=== PATIENT | female | born 1990 | race Caucasian/White ===

== ENCOUNTER 2016-10-31 10:17 | Emergency (ER) | payer SELFPAY ==
[2016-10-31 11:21] VITALS: BP 132/96
--- NOTE | 2016-10-31 12:09 | UC ---
Suraj Acosta SooYoung, scribed for [facility] on 10/31/16 at 1148 . General HPI - HPI Summary HPI Summary: MD AND NURSE'S NOTE: A 26 y/o F with diarrhea and vomiting since last night according to nurse's report. Vitals are stable. Afebrile. Pulse ox 99. Describes 8 out of 10 abd discomfort. PMHx include PNA, GERD, anxiety and depression. IN ROOM NOTE: A 26 y/o F presents to E with c/o n/v/d onset last night approx 2200. Pt has had 10 episodes diarrhea since last night. 2 episodes of emesis this AM, mostly liquid and acidic. Associated sx: diffuse abd pain, increased gas. Denies melena. 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 States no pancreatic issues. She drinks rarely , last drank on . - History of Current Complaint Chief Complaint: UCGI Stated Complaint: DIARRHEA ABD PAIN Time Seen by Provider: 10/31/16 11:22 Hx Obtained From: Patient Onset/Duration: Lasting Hours - onset 2200 last night, Still Present Current Severity: Moderate Pain Intensity: 8 - OUT OF 10 Character: ACHE Associated Signs & Symptoms: Positive: Abdominal Pain, Diarrhea, Nausea, Vomiting, Other - increased gas. Negative: Melena - Allergy/Home Medications Allergies/Adverse Reactions: Allergies Allergy/AdvReac Type Severity Reaction Status Date / Time No Known Allergies Allergy Verified 09/30/16 18:48 PMH/Surg Hx/FS Hx/Imm Hx Previously Healthy: No Endocrine History Of: Denies: Diabetes, Thyroid Disease Cardiovascular History Of: Denies: Cardiac Disorders, Hypertension Respiratory History Of: Reports: Pneumonia Denies: COPD, Asthma GI/ History Of: Denies: Ulcer Psychological History Of: Reports: Anxiety, Depression Cancer History Of: Denies: Breast Cancer - Surgical History Surgical History: None - Family History Known Family History: Positive: Diabetes - multiple relatives Family History: Ovarian and Cervical CA, Asthma - Social History Occupation: Employed Part-time Lives: Alone Alcohol Use: Rare Substance Use Type: None Smoking Status (MU): Never Smoked Tobacco - Immunization History Most Recent Influenza Vaccination: 08/2016 Most Recent Tetanus Shot: < 10 years Most Recent Pneumonia Vaccination: Unsure Review of Systems Gastrointestinal: Abdominal Pain - diffuse, Vomiting, Diarrhea, Other - pos: nausea, increased gas All Other Systems Reviewed And Are Negative: Yes Physical Exam Triage Information Reviewed: Yes Appearance: Well-Appearing, No Pain Distress, Well-Nourished Vital Signs: Initial Vital Signs Temp 97.9 F 10/31/16 11:15 Pulse 92 10/31/16 11:15 Resp 18 10/31/16 11:15 BP 132/96 10/31/16 11:15 Pulse Ox 99 10/31/16 11:15 Vital Signs Reviewed: Yes Eyes: Positive: Conjunctiva Clear ENT: Positive: Hearing grossly normal, Pharynx normal, TMs normal. Negative: Muffled/hoarse voice Neck: Positive: Supple, No Lymphadenopathy Respiratory: Positive: Chest non-tender, Lungs clear, Normal breath sounds, No respiratory distress Cardiovascular: Positive: RRR - approx 90bpm, No Murmur Abdomen Description: Positive: Nontender, No Organomegaly, Soft, Other: - MILD TENDERNESS IN UPPER ABD AND AROUND UMBILICUS WITH PALPATION. NO ACUTE ABD Bowel Sounds: Positive: Present Musculoskeletal: Positive: Strength Intact, Other: - CARROLL Neurological: Positive: Alert Psychological: Positive: Age Appropriate Behavior Skin: Negative: rashes Course/Dx - Course Course Of Treatment: Discussed with pt the need to simplify diet. Will welfare case worker her Zofran. Also explained the need to keep up with fluid loss using flat 7up or dilute gatorade and to follow up in two days if abd pain changes or doesn't resolve, spikes a temperature, or has blood stools. - Differential Dx - Multi-Symptom Differential Diagnoses: Other - gastroenterities, acute abd pain, gallbladder disease Provider Diagnoses: gastroenteritis Discharge - Discharge Plan Condition: Stable Disposition: HOME Prescriptions: Ondansetron ODT TAB* [Zofran Odt TAB*] 4 mg PO Q6H #10 tab.odt Patient Education Materials: Ondansetron (By mouth), Gastroenteritis (ED), Acute Nausea and Vomiting (ED) Forms: *Work Release Referrals: Sotero Vasquez MD [Primary Care Provider] - Additional Instructions: WE DISCUSSED: KEEP UP WITH FLUID LOSS. DRINK FLAT 7 UP OR DILUTE GATORADE. SIMPLIFY YOUR DIET TO BLAND FOODS SUCH SALTINES OR RICE. AVOID MEAT, DAIRY PRODUCTS, FRIED FOODS. TAKE THE ZOFRAN PRESCRIBED. FOLLOW-UP IF YOUR ABDOMINAL PAIN CHANGES OR DOESN'T RESOLVE IN TWO DAYS; IF YOU SPIKE A TEMPERATURE OR IF YOU NOTICE BLOOD IN YOUR STOOLS. The documentation as recorded by the Suraj wills SooYoung accurately reflects the service I personally performed and the decisions made by me, Linden Huerta MD.
== END 2016-10-31 12:13 | disposition home or self-care (01) ==
LOC: UCEAST 10:17
DX: K52.9 Noninfective gastroenteritis and colitis, unspecified (principal)
CPT/HCPCS: 81002; 81025; 99212; G0463

== ENCOUNTER 2018-01-14 10:31 | Emergency (ER) | payer SELFPAY ==
[2018-01-14] MEDS ORDERED: Ketorolac INJ* 30 MG/ML 1 ML VIAL IM ONE (12:46)
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
[2018-01-14 12:59] VITALS: BP 134/97
== END 2018-01-14 12:58 | disposition home or self-care (01) ==
LOC: ED 10:31
DX: S06.0X0A Concussion without loss of consciousness, initial encounter (principal); W20.8XXA Other cause of strike by thrown, projected or falling object, initial encounter; Y93.01 Activity, walking, marching and hiking; Y92.017 Garden or yard in single-family (private) house as the place of occurrence of the external cause; Z88.8 Allergy status to other drugs, medicaments and biological substances
CPT/HCPCS: 96372; 99282; J1885

== ENCOUNTER 2018-08-30 17:20 | Emergency (ER) | payer BC ==
[2018-08-30 17:47] VITALS: BP 110/72
--- NOTE | 2018-08-30 18:38 | UC ---
Abdominal Pain Female HPI - HPI Summary HPI Summary: 28 year old female presents with 6-8 week history of intermittent lower abdominal cramping and loose stool. States she has period of normal formed stool in between these episodes. Has history of IBS but is concerned for C-diff as she has been exposed at work and states her mother recently informed her she had been diagnosed with C-diff however she is not sure when this diagnosis was made. She lives in her own apartment. Denies fever, chills, weakness, dizziness , chest pain, shortness of breath, nausea, vomiting, blood in stool, melena, dysuria, frequency, urgency, recent travel out of the country, recent antibiotic use, consumption of undercooked meat or seafood. - History of Current Complaint Chief Complaint: UCAbdominalPain Stated Complaint: ABDOMINAL PAIN Time Seen by Provider: 08/30/18 18:07 Hx Obtained From: Patient Hx Last Menstrual Period: 08/10/18 Onset/Duration: Lasting Weeks Severity Currently: None Pain Intensity: 1 Location: Other - Lower abdomen Radiates: No Character: Cramping Aggravating Factor(s): Nothing Alleviating Factor(s): Nothing Allergies/Adverse Reactions: Allergies Allergy/AdvReac Type Severity Reaction Status Date / Time muscle relaxers Allergy See Comment Uncoded 08/30/18 17:47 PMH/Surg Hx/FS Hx/Imm Hx Previously Healthy: Yes Other GI/ History: IBS - Surgical History Surgical History: None Surgery Procedure, Year, and Place: n/a - Family History Known Family History: Positive: Diabetes - multiple relatives Family History: Ovarian and Cervical CA, Asthma - Social History Occupation: Employed Full-time Lives: Alone Alcohol Use: Rare Substance Use Type: None Smoking Status (MU): Never Smoked Tobacco - Immunization History Most Recent Influenza Vaccination: 08/2016 Most Recent Tetanus Shot: < 10 years Most Recent Pneumonia Vaccination: Unsure Review of Systems Constitutional: Negative Respiratory: Negative Cardiovascular: Negative Gastrointestinal: Abdominal Pain, Diarrhea Genitourinary: Negative Is Patient Immunocompromised?: No All Other Systems Reviewed And Are Negative: Yes Physical Exam Triage Information Reviewed: Yes Appearance: Well-Appearing, No Pain Distress, Obese Vital Signs: Initial Vital Signs Temp 98.1 F 08/30/18 17:41 Pulse 93 08/30/18 17:41 Resp 16 08/30/18 17:41 BP 110/72 08/30/18 17:41 Pulse Ox 99 08/30/18 17:41 Respiratory: Positive: Lungs clear, Normal breath sounds, No respiratory distress Cardiovascular: Positive: RRR, No Murmur Abdomen Description: Positive: Nontender, No Organomegaly, Soft. Negative: CVA Tenderness (R), CVA Tenderness (L), Distended, Guarding Bowel Sounds: Positive: Present Neurological: Positive: Alert Skin Exam: Normal Abd Pain Female Course/Dx - Course Course Of Treatment: 28 year old female presents with 6-8 week history of intermittent lower abdominal cramping and loose stools. History of IBS. Exam unremarkable. History is consistent with IBS although cannot rule out other causes at this time however C-diff highly unlikely. Recommend watchful waiting, increased fiber intake, and reduction in caffeine intake. She has appointment to establish with a new PCP in about 2 weeks. She is encouraged to keep this appointment for further evaluation. Warning symptoms were reviewed. Verbalizes understanding and agrees with POC. - Differential Dx/Diagnosis Differential Diagnosis: Gall Bladder Disease, Irritable Bowel Syndrome Provider Diagnoses: abdominal pain Discharge - Sign-Out/Discharge Documenting (check all that apply): Patient Departure All imaging exams completed and their final reports reviewed: No Studies - Discharge Plan Condition: Stable Disposition: HOME Patient Education Materials: Abdominal Pain (ED) Referrals: No Primary Care Phys,NOPCP [Primary Care Provider] - Additional Instructions: Your history and exam are not suggestive of a C-diff infection. I suspect that your symptoms are related to your irritable bowel syndrome however I cannot rule out other possible causes at this time. Considering you are presently pain- free I am not concerned for any serious problems requiring emergent evaluation. I would recommend you increase your fiber intake. Eat plenty of fruits, vegetables, and whole grain products. I would also suggest using a fiber supplement such as Metamucil, Citrucel, Benefiber every day. Be sure you drink plenty of fluids with the fiber. Try to reduce or avoid drinking caffeine as this can cause problems with frequent loose stools. Keep your appointment with your primary care provider coming up in a couple weeks to follow up on symptoms. Seek immediate medical attention in the emergency room if you develop fever greater than 100.5 F, have severe abdominal pain, persistent vomiting, blood in your stool, dark black tarry stools, or any worsening of symptoms. - Billing Disposition and Condition Condition: STABLE Disposition: Home - Attestation Statements Provider Attestation: Per institutional requirements, I have reviewed the chart, however, I was not consulted specifically or made aware of this patient by the midlevel provider. I did not personally evaluate, interact with , or disposition this patient.
== END 2018-08-30 18:49 | disposition home or self-care (01) ==
LOC: UCEAST 17:20
DX: R10.30 Lower abdominal pain, unspecified (principal); Z88.8 Allergy status to other drugs, medicaments and biological substances
CPT/HCPCS: 99211; G0463